=== PATIENT | male | born 1970 | race Caucasian/White ===

== ENCOUNTER 2018-05-24 16:19 | Outpatient (CLI) | payer OTHER ==
[~2018-05-24 16:19] MED LIST: ASA81 MG PO; DICY20TA PO; OMEGA 3 500 SO1 EACH PO; [UNRECOGNIZED DRUG - OTHER] PO
== END 2018-05-24 16:30 | disposition home or self-care (01) ==
LOC: LAB 16:19
DX: N39.0 Urinary tract infection, site not specified (principal); I11.9 Hypertensive heart disease without heart failure

== ENCOUNTER 2018-05-26 07:35 | Day surgery (SDC) | payer OTHER | END 2018-05-26 18:10 | disposition home or self-care (01) | LOC: CIR.AMB 07:35 | DX: K64.8 Other hemorrhoids (principal); K64.4 Residual hemorrhoidal skin tags ==

== ENCOUNTER 2018-06-01 02:53 | Emergency (ER) | payer OTHER ==
[~2018-06-01] VITALS: Ht 175.3 cm; Wt 111.6 kg
[2018-06-01] MEDS ORDERED: MOTRIN (03:04)
[2018-06-01] MEDS ORDERED: PNEU16DI2 (03:04)
[2018-06-01] MEDS ORDERED: KRISTALOSE20 GM PO (06:26)
== END 2018-06-01 12:33 | disposition home or self-care (01) ==
LOC: ER 02:53
DX: K59.09 Other constipation (principal)

== ENCOUNTER 2018-06-11 19:46 | Emergency (ER) | payer OTHER ==
[~2018-06-11] VITALS: Ht 175.3 cm; Wt 111.6 kg
[~2018-06-11 19:46] MED LIST changes: +KRISTALOSE20 GM PO; +MOTRIN; +PNEU16DI2
== END 2018-06-11 22:45 | disposition home or self-care (01) ==
LOC: ER 19:46
DX: N39.0 Urinary tract infection, site not specified (principal)

== ENCOUNTER 2018-07-18 03:01 | Emergency (ER) | payer OTHER ==
[~2018-07-18] VITALS: Ht 175.3 cm; Wt 110.7 kg
[2018-07-18] MEDS ORDERED: TRAMADOL HCL50 MG PO (06:54)
== END 2018-07-18 07:24 | disposition home or self-care (01) ==
LOC: ER 03:01
DX: R10.32 Left lower quadrant pain (principal); R19.7 Diarrhea, unspecified

== ENCOUNTER → 2020-09-10 | Emergency (ER) | payer OTHER ==
[~2020-09-10] VITALS: Ht 175.3 cm; Wt 113.4 kg
[~2020-09-10] MED LIST changes: +TRAMADOL HCL50 MG PO
== END | disposition left against medical advice (07) ==
LOC: ER 15:50
DX: K57.92 Diverticulitis of intestine, part unspecified, without perforation or abscess without bleeding (principal); R10.32 Left lower quadrant pain

== ENCOUNTER 2023-06-24 11:09 | Emergency (ER) | payer OTHER ==
[~2023-06-24] VITALS: Ht 175.3 cm; Wt 113.4 kg
[2023-06-24 12:58] LABS: HEMATOCRIT 42.5 % (39.0-48.0); HEMOGLOBIN 14.7 g/dL (13-16.00); MEAN CELL VOLUME 85.3 fL (80.0-100.00); MEAN CORPUSCULAR HEMOGLOBIN 29.6 pg (27.00-32.0); MEAN CORPUSCULAR HGB CONC 34.7 g/dl (32.0-36.0); PLATELET COUNT 231 K/uL (150-450); RED BLOOD COUNT 4.98 M/uL (4.00-6.00); RED CELL DISTRIBUTION WIDTH 13.3 % (11.5-14.5)
[2023-06-24 14:06] LABS: CALCIUM 9.2 mg/dL (8.5-10.1); CREATININE SERUM 1.37 mg/dL (0.70-1.30); GFR 54.78; POTASSIUM 3.33 mEq/L (3.5-5.1)
== END 2023-06-24 15:32 | disposition home or self-care (01) ==
LOC: ER 11:10
PROVIDERS: General Practice
DX: K57.32 Diverticulitis of large intestine without perforation or abscess without bleeding (principal); I10 Essential (primary) hypertension; Z91.013 Allergy to seafood

== ENCOUNTER 2023-09-16 09:45 | Inpatient (IN) | payer OTHER ==
[~2023-09-16] VITALS: Ht 175.3 cm; Wt 116.1 kg
[2023-09-16] MEDS ORDERED: LIPITOR20 MG PO (12:40)
[2023-09-16] MEDS ORDERED: IRBESARTAN-HCT1 EACH PO (12:40)
[2023-09-22] MEDS ORDERED: CEFTRIAXONE SODIUM 2,000 MG VIAL ONE (09:24)
[2023-09-22] MEDS ORDERED: METRONIDAZOLE/SODIUM CHLORIDE 500 MG/100 ML PIGGYBACK IV ONE (09:24)
[2023-09-22] MEDS ORDERED: BUPIVACAINE HCL/PF 0.5% 30ML ML ONE (09:44)
[2023-09-22] MEDS ORDERED: LIDOCAINE HCL/EPINEPHRINE 20 ML VIAL IJ ONE ×2 (09:45→12:30)
[2023-09-22] MEDS ORDERED: BUPIVACAINE HCL/PF 0.5% 5MG/ML VIAL IJ ONE (12:30)
[2023-09-22] MEDS ORDERED: CEFTRIAXONE SODIUM 2,000 MG VIAL IV SCH (12:30)
[2023-09-22] MEDS ORDERED: RINGERS SOLUTION,LACTATED 1,000 ML IV SCH (12:30)
[2023-09-22] MEDS ORDERED: MORPHINE SULFATE 4 MG/ML CARTRIDGE IV PRN (12:30)
[2023-09-22] MEDS ORDERED: METRONIDAZOLE/SODIUM CHLORIDE 500 MG/100 ML PIGGYBACK IV SCH (12:30)
[2023-09-22] MEDS ORDERED: ONDANSETRON HCL 2 MG/ML VIAL IV PRN (12:30)
[2023-09-22] MEDS ORDERED: OxyCODONE HCL 5 MG TABLET (ROXICODONE) PO PRN (12:30)
[2023-09-22] MEDS ORDERED: ACETAMINOPHEN 500 MG GEL..CAP PO SCH (14:00)
[2023-09-22 15:34] LABS: HEMATOCRIT 43.9 % (39.0-48.0); HEMOGLOBIN 14.9 g/dL (13-16.00); MEAN CELL VOLUME 87.9 fL (80.0-100.00); MEAN CORPUSCULAR HEMOGLOBIN 29.9 pg (27.00-32.0); PLATELET COUNT 253 K/uL (150-450); RED CELL DISTRIBUTION WIDTH 13.2 % (11.5-14.5)
[2023-09-22] MEDS ORDERED: METOCLOPRAMIDE HCL 5 MG/ML VIAL IV SCH (17:00)
[2023-09-22] MEDS ORDERED: POLYETHYLENE GLYCOL 3350 17 GM BLIST.PACK PO SCH (17:00)
[2023-09-22] MEDS ORDERED: SIMETHICONE 125 MG CAPSULE PO SCH (17:00)
[2023-09-22] MEDS ORDERED: HYOSCYAMINE SULFATE 0.125 MG TAB.SUBL SL SCH (17:00)
[2023-09-22] MEDS ORDERED: GABAPENTIN 300 MG CAPSULE PO SCH (17:00)
[2023-09-22] MEDS ORDERED: CELECOXIB 200 MG CAPSULE PO SCH (17:00)
[2023-09-22] MEDS ORDERED: ENALAPRILAT DIHYDRATE 1.25 MG/ML VIAL IV PRN (18:00)
[2023-09-22 19:16] LABS: ABG PH 7.411 (7.35-7.45); ABG PO2 87.6 mmHg (80-100); ABG pCO2 38.4 mmHg (35-45); SaO2 96.8 %
[2023-09-22 19:17] LABS: BASE EXCESS -0.5 mmol/l; BICARBONATE 23.8 mmol/l (23-25); allen test SATISFACTORY; o2 21 %; puncture site RADIAL LEFT
[2023-09-22] MEDS ORDERED: FAMOTIDINE/PF 20 MG/2 ML VIAL IV PUSH SCH (21:00)
[2023-09-23 05:50] LABS: HEMATOCRIT 42.1 % (39.0-48.0); HEMOGLOBIN 14.7 g/dL (13-16.00); MEAN CELL VOLUME 86.6 fL (80.0-100.00); MEAN CORPUSCULAR HEMOGLOBIN 30.2 pg (27.00-32.0); MEAN CORPUSCULAR HGB CONC 34.8 g/dl (32.0-36.0); PLATELET COUNT 226 K/uL (150-450); RED BLOOD COUNT 4.87 M/uL (4.00-6.00); RED CELL DISTRIBUTION WIDTH 12.8 % (11.5-14.5)
[2023-09-23 06:36] LABS: ALBUMIN 3.4 gm/dL (3.4-5.0); CALCIUM 8.5 mg/dL (8.5-10.1); CREATININE SERUM 1.24 mg/dL (0.70-1.30); GFR 61.22; PHOSPHOROUS 3.1 mg/dL (2.5-4.9); POTASSIUM 3.72 mEq/L (3.5-5.1)
[2023-09-23] MEDS ORDERED: LACTULOSE 20 G/30 ML BLIST.PACK PO SCH (09:00)
[2023-09-23] MEDS ORDERED: HYDROCHLOROTHIAZIDE 12.5 MG CAPSULE PO SCH (09:00)
[2023-09-23] MEDS ORDERED: IRBESARTAN 150 MG TABLET PO SCH (09:00)
[2023-09-23] MEDS ORDERED: LACTOBACILLUS ACIDOPHILUS 1 CAP CAP PO SCH (09:00)
[2023-09-23] MEDS ORDERED: ATORVASTATIN CALCIUM 20 MG TABLET PO SCH (17:00)
[2023-09-23] MEDS ORDERED: ENOXAPARIN SODIUM 40 MG/0.4 ML SYRINGE SUBCUTANEO SCH (17:00)
[2023-09-24 05:55] LABS: HEMATOCRIT 40.4 % (39.0-48.0); HEMOGLOBIN 13.9 g/dL (13-16.00); MEAN CELL VOLUME 87.1 fL (80.0-100.00); MEAN CORPUSCULAR HEMOGLOBIN 29.9 pg (27.00-32.0); MEAN CORPUSCULAR HGB CONC 34.3 g/dl (32.0-36.0); PLATELET COUNT 200 K/uL (150-450); RED BLOOD COUNT 4.64 M/uL (4.00-6.00)
[2023-09-24 06:55] LABS: CALCIUM 8.6 mg/dL (8.5-10.1); CREATININE SERUM 1.09 mg/dL (0.70-1.30); GFR 71.04; POTASSIUM 4.06 mEq/L (3.5-5.1)
[2023-09-24 07:05] LABS: PHOSPHOROUS 1.9 mg/dL (2.5-4.9)
[2023-09-24] MEDS ORDERED: ENOXAPARIN SODIUM 40 MG/0.4 ML SYRINGE SUBCUTANEO SCH (09:00)
[2023-09-24] MEDS ORDERED: POTASSIUM PHOS,M-BASIC-D-BASIC 3 MM/ML VIAL IV NR (10:00)
== END 2023-09-24 21:13 | disposition home or self-care (01) | DRG 331 ==
LOC: SURG 09-22 04:32 → O/R 09-22 04:32 → SURH 09-22 07:00 → SURG 09-22 13:35
PROVIDERS: Internal Medicine Geriatric Medicine; ADMIT Colon & Rectal Surgery; ATTEND Colon & Rectal Surgery
PROC: 0DBP4ZZ Excision of Rectum, Percutaneous Endoscopic Approach (ICD-10-PCS; 2023-09-22)
PROC: 0DJD8ZZ Inspection of Lower Intestinal Tract, Via Natural or Artificial Opening Endoscopic (ICD-10-PCS; 2023-09-22)
PROC: 4A12X4Z Monitoring of Cardiac Electrical Activity, External Approach (ICD-10-PCS; 2023-09-22)
PROC: 0DTN4ZZ Resection of Sigmoid Colon, Percutaneous Endoscopic Approach (ICD-10-PCS; principal; 2023-09-22 07:00)
DX: K57.32 Diverticulitis of large intestine without perforation or abscess without bleeding (principal); K64.2 Third degree hemorrhoids; K64.4 Residual hemorrhoidal skin tags; K66.0 Peritoneal adhesions (postprocedural) (postinfection); I11.9 Hypertensive heart disease without heart failure; G47.30 Sleep apnea, unspecified; E78.5 Hyperlipidemia, unspecified